=== PATIENT | female | born 1970 | race Caucasian/White ===

== ENCOUNTER → 2019-08-06 16:51 | Outpatient (BNVA) | payer MEDICAID, SELFPAY | PROVIDERS: Family Provider Nurse Practitioner; Visit Provider Nurse Practitioner | DX: I10 Essential (primary) hypertension (principal); F41.1 Generalized anxiety disorder; J30.1 Allergic rhinitis due to pollen; E66.9 Obesity, unspecified | CPT/HCPCS: 80053; 80061; 81000 ==

== ENCOUNTER → 2020-02-12 13:39 | Outpatient (BNVA) | payer MEDICAID, SELFPAY | PROVIDERS: PCP Nurse Practitioner; Visit Provider Nurse Practitioner Family | DX: E78.2 Mixed hyperlipidemia (principal); I10 Essential (primary) hypertension; E66.01 Morbid (severe) obesity due to excess calories; E88.81 Metabolic syndrome and other insulin resistance; Z68.44 Body mass index [BMI] 60.0-69.9, adult; F41.1 Generalized anxiety disorder; Z12.11 Encounter for screening for malignant neoplasm of colon; G47.10 Hypersomnia, unspecified; J45.909 Unspecified asthma, uncomplicated; Z12.31 Encounter for screening mammogram for malignant neoplasm of breast; Z23 Encounter for immunization; K21.9 Gastro-esophageal reflux disease without esophagitis | CPT/HCPCS: 80053; 80061; 83036; 84443; 85025 ==

== ENCOUNTER 2020-07-23 14:01 | Emergency (ER) | payer MEDICAID, SELFPAY ==
[2020-07-23 14:29] VITALS: BP 143/89; PULSE 94; RESP 22; TEMP 36.6; O2SAT 93; BMI 56.0
[2020-07-23 17:31] VITALS: BP 143/89; PULSE 93; RESP 18; O2SAT 95
--- NOTE | 2020-07-23 17:54 | ED_ITS ---
HPI - General Adult General: Chief complaint: General Medical Stated complaint: stuffy Time Seen by Provider: 07/23/20 17:45 Source: patient Mode of arrival: ambulatory Limitations: no limitations History of Present Illness: HPI narrative: Feels pressure in her ears has been congested for 2 weeks. Notices that when she lays at night and goes to stand up there is drainage. No coughing or any other symptoms when she is up and moving. Onset (ago): week(s) (2) Review of Systems General: Reports: 10 or more systems reviewed and unremarkable except in HPI and below ENMT: Reports: nasal congestion and sinus pain Resp: Reports: non-productive cough (Intermittent) PFSH ED PFSH: Medical History Asthma Essential (primary) hypertension Generalized anxiety disorder GERD (gastroesophageal reflux disease) Mixed hyperlipidemia Obesity BMI 65.5% Seasonal allergic rhinitis due to pollen Surgical History History of section Family History Other CAD (coronary artery disease) Diabetes Hypertension Social History Smoking and tobacco status: former smoker Second hand smoke exposure: No Smoking risk assessment/counseling performed?: No Alcohol intake: never Desire information about alcohol rehabilitation?: No Counseling given: No Desire information about substance/drug rehabilitation?: No Counseling given: No Adopted: No Caregiver/support person: No Lives independently: Yes Household members: none Marital status: Legally Number of children: 1 service: No Current occupational status: unemployed Pets and animals: Yes History of recent travel: No Sexually active: Yes Are you practicing safe sex: No Current gender identity: Female Physical Exam Const: COMMON NORMALS: no acute distress and patient oriented x3 NUTRITIONAL APPEARANCE: obese morbidly obese ORIENTATION/CONSCIOUSNESS: Yes awake HENMT: COMMON NORMALS: normocephalic, atraumatic and Normal external nose present HEAD & SCALP: normocephalic and atraumatic FACE & SINUS: normal facial exam and sinus tenderness frontal and maxillary NOSE: Normal external nose present and Nasal discharge present clear TYMPANIC MEMBRANE: TM abnormal TM laterality: right Details: bulging and erythematous and left Details: bulging and erythematous MOUTH: Normal oral and palatal mucosa present Eye: COMMON NORMALS: Equal, round and reactive pupils present and EOMs intact bilaterally PUPIL: Yes Equal, round and reactive pupils present Neck/C-Spine: COMMON NORMALS: full ROM and no lymphadenopathy Lymph: LYMPHATIC: no lymphadenopathy noted Chest: COMMONS NORMALS: normal inspection of the chest Resp: COMMON NORMALS: normal respiratory effort, No retractions and No use of accessory muscles AUSCULTATION: diminished lung sounds Cardio: COMMON NORMALS: regular rate, regular rhythm, S1 normal heart sound present and S2 normal heart sound present RATE: regular rate RHYTHM: regular rhythm HEART SOUNDS: S1 normal heart sound present and S2 normal heart sound present GI: COMMON NORMALS: Normal to inspection, nondistended, normoactive bowel sounds present : COMMON NORMALS: Yes no CVA tenderness BLADDER/KIDNEY EXAM: Yes no CVA tenderness Back/Pelvis: COMMON NORMALS: no CVA tenderness Extremity: COMMON NORMALS: normal to inspection and full ROM Neuro: COMMON NORMALS: patient oriented x3 Psych: COMMON NORMALS: mental status grossly normal, Normal thought process present, cooperative, normal affect and speech normal SPEECH: Yes normal speech THOUGHT PROCESS: Normal thought process present Skin: COMMON NORMALS: no rashes or lesions noted GENERAL SKIN EXAM: no rashes or lesions noted Course ED course: Plan to follow-up as scheduled with primary care provider in office. Complaints intermittent lasting a minimum of 2 weeks prior to visit. Vital Signs: Vital signs: Vital Signs Temperature 97.9 F 07/23/20 14:29 Pulse Rate 93 07/23/20 17:31 Respiratory Rate 18 07/23/20 17:31 Blood Pressure 143/89 07/23/20 17:31 Pulse Oximetry 95 07/23/20 17:31 Discharge Plan Discharge Condition: Stable Prescriptions: New amoxicillin-pot clavulanate [Augmentin] 875-125 mg tablet 1 tab PO BID 5 Days Qty: 10 RF: 0 loratadine [Claritin] 10 mg tablet 10 mg PO DAILY Qty: 30 RF: 0 No Action ibuprofen [IBU] 800 mg tablet 800 mg PO TID RF: 0 nitroglycerin 0.4 mg tablet, sublingual 0.4 mg SUBLINGUAL Q5M PRNRF: 0 metoprolol tartrate 25 mg tablet 25 mg PO BID Qty: 60 RF: 5 metformin 500 mg tablet extended release 24 hr 500 mg PO BID Qty: 60 RF: 5 fluticasone propionate [Flonase Allergy Relief] 50 mcg/actuation spray,suspension 2 spray INTRANASAL DAILY Qty: 16 RF: 5 fenofibrate nanocrystallized [Tricor] 145 mg tablet 145 mg PO DAILY Qty: 30 RF: 5 famotidine 40 mg tablet 40 mg PO DAILY 30 Days Qty: 30 RF: 5 citalopram [Celexa] 10 mg tablet 10 mg PO DAILY Qty: 30 RF: 5 amlodipine 5 mg tablet 5 mg PO DAILY Qty: 30 RF: 5 albuterol sulfate 90 mcg/actuation HFA aerosol inhaler 2 puff INHALATION Q6H PRN (Reason: shortness of breath or wheezing) Qty: 18 RF: 5 meloxicam 15 mg tablet 15 mg PO DAILY 30 Days Qty: 30 RF: 5 lisinopril 40 mg tablet 40 mg PO DAILY 30 Days Qty: 30 RF: 5 Discharge Orders: Discharge ED (Routine); Ordered 07/23/20 Ordered By: Tracee Mensah Referrals: Redd Jacinto FNP-C [Primary Care Provider] - 4-7 days (PRN no improvement) Discharge Diet: Usual diet Discharge Activity: Resume usual activity Patient Instructions: Sinusitis - Acute Coding Level of Care Code ED Policy Issue Clerk for Fernando Garcia
--- NOTE | 2020-07-23 18:04 | W.ED.GENADLT ---
HPI - General Adult General: Chief complaint: General Medical Stated complaint: stuffy Time Seen by Provider: 07/23/20 17:45 Source: patient Mode of arrival: ambulatory Limitations: no limitations Review of Systems General: Reports: 10 or more systems reviewed and unremarkable except in HPI and below ENMT: Reports: nasal congestion and sinus pain PFS ED PFSH: Medical History Asthma Essential (primary) hypertension Generalized anxiety disorder GERD (gastroesophageal reflux disease) Mixed hyperlipidemia Obesity BMI 65.5% Seasonal allergic rhinitis due to pollen Surgical History History of section Family History Other CAD (coronary artery disease) Diabetes Hypertension Social History Smoking and tobacco status: former smoker Second hand smoke exposure: No Smoking risk assessment/counseling performed?: No Alcohol intake: never Desire information about alcohol rehabilitation?: No Counseling given: No Desire information about substance/drug rehabilitation?: No Counseling given: No Adopted: No Caregiver/support person: No Lives independently: Yes Household members: none Marital status: Legally Number of children: 1 service: No Current occupational status: unemployed Pets and animals: Yes History of recent travel: No Sexually active: Yes Are you practicing safe sex: No Current gender identity: Female Course Vital Signs: Vital signs: Vital Signs Temperature 97.9 F 07/23/20 14:29 Pulse Rate 93 07/23/20 17:31 Respiratory Rate 18 07/23/20 17:31 Blood Pressure 143/89 07/23/20 17:31 Pulse Oximetry 95 07/23/20 17:31 Discharge Plan Discharge Condition: Stable Prescriptions: New amoxicillin-pot clavulanate [Augmentin] 875-125 mg tablet 1 tab PO BID 5 Days Qty: 10 RF: 0 loratadine [Claritin] 10 mg tablet 10 mg PO DAILY Qty: 30 RF: 0 No Action ibuprofen [IBU] 800 mg tablet 800 mg PO TID RF: 0 nitroglycerin 0.4 mg tablet, sublingual 0.4 mg SUBLINGUAL Q5M PRNRF: 0 metoprolol tartrate 25 mg tablet 25 mg PO BID Qty: 60 RF: 5 metformin 500 mg tablet extended release 24 hr 500 mg PO BID Qty: 60 RF: 5 fluticasone propionate [Flonase Allergy Relief] 50 mcg/actuation spray,suspension 2 spray INTRANASAL DAILY Qty: 16 RF: 5 fenofibrate nanocrystallized [Tricor] 145 mg tablet 145 mg PO DAILY Qty: 30 RF: 5 famotidine 40 mg tablet 40 mg PO DAILY 30 Days Qty: 30 RF: 5 citalopram [Celexa] 10 mg tablet 10 mg PO DAILY Qty: 30 RF: 5 amlodipine 5 mg tablet 5 mg PO DAILY Qty: 30 RF: 5 albuterol sulfate 90 mcg/actuation HFA aerosol inhaler 2 puff INHALATION Q6H PRN (Reason: shortness of breath or wheezing) Qty: 18 RF: 5 meloxicam 15 mg tablet 15 mg PO DAILY 30 Days Qty: 30 RF: 5 lisinopril 40 mg tablet 40 mg PO DAILY 30 Days Qty: 30 RF: 5 Discharge Orders: Discharge ED (Routine); Ordered 07/23/20 Ordered By: Tracee Mensah Referrals: Redd Jacinto, INSURANCE BROKER-C [Primary Care Provider] - 4-7 days (PRN no improvement) Discharge Diet: Usual diet Discharge Activity: Resume usual activity Patient Instructions: Sinusitis - Acute Coding Level of Care Code ED Profile 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
== END 2020-07-23 18:26 ==
PROVIDERS: Emergency Provider Nurse Practitioner Family; PCP Nurse Practitioner
DX: H93.93 Unspecified disorder of ear, bilateral (principal); I10 Essential (primary) hypertension; E78.2 Mixed hyperlipidemia; Z87.891 Personal history of nicotine dependence
CPT/HCPCS: 99281

== ENCOUNTER → 2020-09-24 16:40 | Outpatient (BNVA) | payer MEDICAID, SELFPAY | PROVIDERS: PCP Nurse Practitioner; Visit Provider Nurse Practitioner Family | DX: I10 Essential (primary) hypertension (principal) | CPT/HCPCS: 80053; 80061; 84443; 85025 ==

== ENCOUNTER 2020-11-17 14:38 | Emergency (ER) | payer MEDICAID, SELFPAY ==
[2020-11-17] VITALS (8 sets, daily range): BP systolic 147–170; BP diastolic 84–90; PULSE 87–100; RESP 20–21; TEMP 37.3; O2SAT 80–96; BMI 54.8
--- NOTE | 2020-11-17 15:02 | ECG_ITS ---
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 Measurements Intervals [place] Rate: 85 P: 62 GA: 136 QRS: 24 QRSD: 90 T: 62 QT: 383 QTc: 456 Interpretive Statements SINUS RHYTHM Compared to ECG 12/21/2018 08:01:38 No significant changes Electronically Signed On 11-19-2020 9:03:10 CDT by Leila Morfin M.D. [email or web address] Local/store/NU/[id number] f
--- NOTE | 2020-11-17 15:02 | XRR_ITS ---
PROCEDURE INFORMATION: Exam: XR Chest Exam date and time: 11/17/2020 3:02 PM Age: 50 years old Clinical indication: Pain; Angina pectoris; Additional info: Chest pain TECHNIQUE: Imaging protocol: XR of the chest. Views: 1 view. COMPARISON: CR Chest 1 [place] [id number] 12/21/2018 5:29 AM FINDINGS: Lungs: A calcified granuloma is again seen in the right upper lobe. The lungs are otherwise clear. Pleural spaces: Unremarkable. No pleural effusion. No pneumothorax. Heart: The heart is mildly enlarged. Bones/joints: Mild degenerative changes are seen in both shoulders. No acute fracture is detected. XR/XR chest 1V portable [id number] IMPRESSION: 1. No acute pulmonary abnormality. 2. Mild cardiomegaly.
--- NOTE | 2020-11-17 15:03 | ED_ITS ---
HPI - Chest Pain General: Chief Complaint: Chest Pain Stated Complaint: CHEST PAIN Time Seen by Provider: 11/17/20 14:45 History of Present Illness: HPI narrative: 50-year-old female with a history of hypertension, anxiety, gastritis with GERD, morbid obesity who presents with chief complaint of about 15 minutes of central substernal and epigastric discomfort in the low chest. Patient reports she felt nauseated but not enough to vomit. She reports no associated back pain, arm pain, neck pain, shortness of breath, dizziness, palpitations. Patient is not able to describe the discomfort. She states she had been worried about her granddaughter and had e aten some cottage cheese. It is unclear to her whether the anxiety about her granddaughter or the cottage cheese caused her symptoms. She rates her pain as a 0 now. The patient did take 1 nitroglycerin with EMS but refused aspirin because she is allergic. Associated symptoms: Reports nausea; Deny abdominal pain, dyspnea, fever(s), palpitations, syncope or vomiting Review of Systems General: Reports: 10 or more systems reviewed and unremarkable except in HPI and below Const: Denies: fever(s), chills, body aches, change in appetite or change in weight Eyes: Denies: change in vision ENMT: Denies: throat pain Card: Reports: chest pain, dyspnea on exertion (unchanged) and orthopnea (unchanged); Denies: palpitations, irregular heart rhythm, edema, swelling of feet/ankles, lightheadedness or syncope Resp: Reports: wheezing; Denies: dyspnea, productive cough, pain on inspiration or hemoptysis GI: Reports: nausea; Denies: abdominal pain, vomiting, diarrhea, belching, change in bowel habits, pain on defecation, change in stool character or hematochezia : Denies: flank pain, dysuria or urinary frequency Musc: Denies: neck pain, back pain, extremity pain or extremity swelling Skin/Breast: Denies: rash or erythema Neuro: Denies: headache(s), numbness in extremities, weakness in extremities, lack of coordination or difficulty walking Psych: Reports: anxiety [facility] ED PFSH: Medical History (Updated 11/17/20 @ 17:34 by Honorio Blue MD) Asthma Essential (primary) hypertension Generalized anxiety disorder GERD (gastroesophageal reflux disease) Mixed hyperlipidemia Obesity BMI 65.5% Seasonal allergic rhinitis due to pollen Surgical History History of section Family History Other CAD (coronary artery disease) Diabetes Hypertension Social History Second hand smoke exposure: No Smoking risk assessment/counseling performed?: No Alcohol intake: never Desire information about alcohol rehabilitation?: No Counseling given: No Desire information about substance/drug rehabilitation?: No Counseling given: No Adopted: No Caregiver/support person: No Lives independently: Yes Household members: none Marital status: Legally Number of children: 1 service: No Current occupational status: unemployed Pets and animals: Yes History of recent travel: No Sexually active: Yes Are you practicing safe sex: No Current gender identity: Female Physical Exam Const: COMMON NORMALS: no acute distress, no limitations, alert and well nourished; negative for average body habitus EXAM LIMITATIONS: no altered mental status GENERAL APPEARANCE: cooperative, comfortable and well developed; not well kempt NUTRITIONAL APPEARANCE: obese ORIENTATION/CONSCIOUSNESS: Yes awake; not confused HENMT: COMMON NORMALS: normocephalic, atraumatic, external ears normal and Normal external nose present HEAD & SCALP: normal to inspection, normocephalic and atraumatic FACE & SINUS: face symmetric NOSE: Normal external nose present EXTERNAL EAR: Yes external ears normal MOUTH: lip normal; no muffled voice Eye: COMMON NORMALS: EOMs intact bilaterally and conjunctivae normal GENERAL EYE: appearance normal, both eyes and all related structures CO NJUNCTIVA: Yes conjunctivae normal Neck/C-Spine: COMMON NORMALS: no JVD GENERAL: Yes normal visual inspection and Yes trachea midline Resp: EFFORT & INSPECTION: Yes able to speak in complete sentences, Yes symmetric chest movement, Yes tachypneic, Yes labored and Yes grunting (with exertion) AUSCULTATION: no crackles, no rales, wheezes and diminished lung sounds OTHER: Obesity makes chest wall movement/taking deep breaths difficult Cardio: COMMON NORMALS: no JVD, regular rate and regular rhythm RATE: regular rate RHYTHM: regular rhythm PERIPHERAL PULSES: radial pulses present GI: COMMON NORMALS: Soft to palpation INSPECTION: Yes normal to inspection PALPATION: Yes Soft to palpation, No Tenderness to palpation present (GI) and No Guarding due to palpation present (GI) Back/Pelvis: COMMON NORMALS: thoraco-lumbar ROM normal Extremity: COMMON NORMALS: normal to inspection GENERAL: Yes normal exam except as noted Neuro: COMMON NORMALS: moves all extremities, no focal motor deficits and no sensory deficits noted SENSORIUM/ORIENTATION: Yes alert Psych: COMMON NORMALS: mental status grossly normal, Normal thought process present, cooperative, normal affect and speech normal APPEARANCE: No well kempt SPEECH: Yes normal speech THOUGHT PROCESS: Normal thought process present Skin: COMMON NORMALS: no rashes or lesions noted, turgor normal and no jaundice GENERAL SKIN EXAM: no rashes or lesions noted and turgor normal Course Vital Signs: Vital signs: Vital Signs Temperature 99.1 F 11/17/20 14:49 Pulse Rate 100 11/17/20 18:04 Respiratory Rate 21 H 11/17/20 18:04 Blood Pressure 160/90 11/17/20 18:04 Pulse Oximetry 96 11/17/20 18:04 MDM - Chest Pain MDM Narrative: Medical decision making narrative: 50-year-old female presents with approximately 15 minutes of chest discomfort. Differential diagnosis is large and includes anxiety, arrhythmia, acute coronary syndrome, hepatobiliary dysfunction, gastritis, GERD, hiatal hernia, esophageal dysmotility, partial esophageal obstruction, obstructive lung disease, etc. EKG shows a sinus rhythm at a rate of 85 bpm, normal axis, normal intervals, and no concerning ST segment elevations or depressions. There is no ectopy. No signs of preexcitation. CXR shows cardiomegaly. Patient hypoxic with exertion or with falling asleep. Likely obesity hypoventilation syndrome with ARACELI. Bicarb elevated which is often indication of chronic respiratory acidosis. However, will r/o PE, pneumonia, effusions, etc. CTA chest has ruled out PE. No evidence of pneumonia. Some small airway mucus plugging noted. Patient has qualified for home oxygen. Will refer to pulmonology for sleep study. Trop/delta trop stable. d/c with outpatient f/u Lab Data: Labs: Lab Results 11/17/20 11/17/20 11/17/20 Range/Units 15:16 15:16 15:16 WBC 11.1 H (4.0-10.0) 10^3/ uL RBC 4.69 (4.1-5.3) 10^6/u L Hgb 12.1 (11.5-15.3) g/dL Hct 38.9 (37.0-47.0) % MCV 82.9 (81-99) fl MCH 25.8 L (28.0-34.0) pg MCHC 31.1 (30.0-36.0) g/dL RDW 13.6 (12.1-15.1) % Plt Count 324 (130-400) 10^3/c mm MPV 10.2 (7.4-10.4) fL Neut % (Auto) 68.6 % Lymph % (Auto) 13.5 % [place] % (Auto) 6.7 % Eos % (Auto) 10.4 % Baso % (Auto) 0.4 % Neut # (Auto) 7.64 (1.8-7.7) 10^3/u L Lymph # (Auto) 1.5 (0.8-4.8) 10^3/u L [place] # (Auto) 0.8 (0.2-0.9) 10^3/u L Eos # (Auto) 1.2 H (0.0-0.8) 10^3/u L Baso # (Auto) 0.1 (0.0-0.1) 10^3/u L Nucleated RBC % (a uto) 0 % Nucleated RBCs # 0.0 /100WBC Sodium 141 (136-145) mmol/L Potassium 3.9 (3.5-5.1) mmol/L Chloride 103 (98-107) mmol/L Carbon Dioxide 30 H (22-29) mmol/L Anion Gap 11.9 (5-19) BUN 16 (6-20) mg/dL Creatinine 0.6 (0.5-0.9) mg/dL GFR Calculation 105.8 (90-130) mL/min Glucose 131 H (65-115) mg/dL Calculated Osmolal ity 295 (285-295) mOsm/k g Calcium 8.8 (8.5-10.5) mg/dL Total Bilirubin 0.2 (0.15-1.2) mg/dL AST 11 (0-32) U/L ALT 13 (0-33) U/L Alkaline Phosphata se 51 (35-105) IU/L Troponin T Baselin e 6 (0-10) ng/L Troponin T 120 Min [place] (0-10) ng/L Delta Troponin T (0-10) ABS# NT-Pro-B Natriuret Pep 295 H (0-125) pg/mL Total Protein 7.1 (6.6-8.7) g/dL Albumin 4.2 (3.5-5.2) g/dL Globulin 2.9 (1.3-4.6) g/dL Lipase 27 (13-60) U/L SARS-CoV-2 Ag (Rap id) (Negative) 11/17/20 11/17/20 Range/Units 15:40 17:11 WBC (4.0-10.0) 10^3/ uL RBC (4.1-5.3) 10^6/u L Hgb (11.5-15.3) g/dL Hct (37.0-47.0) % MCV (81-99) fl MCH (28.0-34.0) pg MCHC (30.0-36.0) g/dL RDW (12.1-15.1) % Plt Count (130-400) 10^3/c mm MPV (7.4-10.4) fL Neut % (Auto) % Lymph % (Auto) % [place] % (Auto) % Eos % (Auto) % Baso % (Auto) % Neut # (Auto) (1.8-7.7) 10^3/u L Lymph # (Auto) (0.8-4.8) 10^3/u L [place] # (Auto) (0.2-0.9) 10^3/u L Eos # (Auto) (0.0-0.8) 10^3/u L Baso # (Auto) (0.0-0.1) 10^3/u L Nucleated RBC % (a uto) % Nucleated RBCs # /100WBC Sodium (136-145) mmol/L Potassium (3.5-5.1) mmol/L Chloride (98-107) mmol/L Carbon Dioxide (22-29) mmol/L Anion Gap (5-19) BUN (6-20) mg/dL Creatinine (0.5-0.9) mg/dL GFR Calculation (90-130) mL/min Glucose (65-115) mg/dL Calculated Osmolal ity (285-295) mOsm/k g Calcium (8.5-10.5) mg/dL Total Bilirubin (0.15-1.2) mg/dL AST (0-32) U/L ALT (0-33) U/L Alkaline Phosphata se (35-105) IU/L Troponin T Baselin e (0-10) ng/L Troponin T 120 Min [place] 6.00 (0-10) ng/L Delta Troponin T 0 (0-10) ABS# NT-Pro-B Natriuret Pep (0-125) pg/mL Total Protein (6.6-8.7) g/dL Albumin (3.5-5.2) g/dL Globulin (1.3-4.6) g/dL Lipase (13-60) U/L SARS-CoV-2 Ag (Rap id) Negative (Negative) Discharge Plan Discharge Patient Disposition: Home Clinical Impression: Atypical chest pain, Obesity hypoventilation syndrome, Obstructive sleep apnea, Cardiomegaly Condition: Stable Prescriptions: No Action ibuprofen [IBU] 800 mg tablet 800 mg PO TID RF: 0 nitroglycerin 0.4 mg tablet, sublingual 0.4 mg SUBLINGUAL Q5M PRN (Reason: Chest Pain) RF: 0 cyclobenzaprine 10 mg tablet 10 mg PO BID 10 Days Qty: 20 RF: 0 metoprolol tartrate 25 mg tablet 25 mg PO BID Qty: 60 RF: 5 metformin 500 mg tablet extended release 24 hr 500 mg PO BID Qty: 60 RF: 5 meloxicam 15 mg tablet 15 mg PO DAILY 30 Days Qty: 30 RF: 5 lisinopril 40 mg tablet 40 mg PO DAILY 30 Days Qty: 30 RF: 5 fluticasone propionate [Flonase Allergy Relief] 50 mcg/actuation spray,suspension 2 spray INTRANASAL DAILY Qty: 16 RF: 5 fenofibrate nanocrystallized [Tricor] 145 mg tablet 145 mg PO DAILY Qty: 30 RF: 5 famotidine 40 mg tablet 40 mg PO DAILY 30 Days Qty: 30 RF: 5 citalopram [Celexa] 10 mg tablet 10 mg PO DAILY Qty: 30 RF: 5 amlodipine 5 mg tablet 5 mg PO DAILY Qty: 30 RF: 5 albuterol sulfate 90 mcg/actuation HFA aerosol inhaler 2 puff INHALATION Q6H PRN (Reason: shortness of breath or wheezing) Qty: 18 RF: 5 Discharge Orders: Discharge ED (Routine); Ordered 11/17/20 Ordered By: Honorio Blue Other Ambulatory Orders: DME: Oxygen (Order) Timeframe: 60 Months Location: None Selected Ordered By: Honorio Blue Referrals: DatarEzequiel MD [Physician] - 4-7 days (Had to be started on oxygen in ED. Dropped into 70s while sitting up on 3L NC when she fell asleep.) Redd Jacinto, ICHTHYOLOGY TEACHER-C [Primary Care Provider] - (Had to be started on oxygen. Has clinical s/s of ARACELI and pulm htn from obesity hypoventilation syndrome.) Discharge Diet: Advance as tolerated Discharge Activity: Resume usual activity Patient Instructions: Sleep Apnea Syndrome (GEN), Using Oxygen at Home (ED), Hypoxia (ED), Opioid Safety Coding Level of Care Code ED Shoveler for Chg Fwd Exam Comprehensive
[2020-11-17] MEDS: lidocaine 2% viscous 15 ML, aluminum-mag hydrox-simethicon 30 ML, sucralfate oral liq 1 GM PO (15:24)
[2020-11-17] MEDS: ondansetron 2 mg/ML SDV 2 mL 4 MG IVP (15:24)
--- NOTE | 2020-11-17 15:34 | CTR_ITS ---
PROCEDURE INFORMATION: Exam: CTA Chest With Contrast Exam date and time: 11/17/2020 3:34 PM Age: 50 years old Clinical indication: Other: Hypoxia; Patient HX: Scan x 2 poor bolus; Additional info: Hypoxia, cp TECHNIQUE: Imaging protocol: Computed tomographic angiography of the chest with contrast. 3D rendering (Not supervised by radiologist): MIP and/or 3D reconstructed images were created by the technologist. Radiation optimization: All CT scans at this facility use at least one of these dose optimization techniques: automated exposure control; mA and/or kV adjustment per patient size (includes targeted exams where dose is matched to clinical indication); or iterative reconstruction. Contrast material: OMNI 350; Contrast volume: 190 ml; Contrast route: INTRAVENOUS (IV); COMPARISON: CR XR chest 1V portable [id number] 11/17/2020 3:46 PM RADIATION DOSE METRICS: Total DLP (mGy-cm): 2523.76 FINDINGS: Pulmonary arteries: No pulmonary embolus is seen. Aorta: Unremarkable. No aortic aneurysm. No aortic dissection. Lungs: Small calcified granulomas are present in the right upper lobe and lingula. Mild mosaic lung attenuation is observed in both lungs. No acute airspace process is visualized. Patchy areas of bronchial mucous plugging are detected in the lower lobes. Subsegmental atelectasis is also seen in the right middle lobe and lingula. Pleural spaces: Unremarkable. No pneumothorax. No pleural effusion. Heart: The heart is normal in size. Lymph nodes: A calcified lymph node is seen in the left hilum. No lymphadenopathy. Liver: The liver is mildly enlarged and demonstrates mild fatty infiltration changes. No parenchymal lesion is visualized on the images provided. Bones/joints: Unremarkable. No acute fracture. Soft tissues: Unremarkable. CT/CT angio chest PE protcl [id number] IMPRESSION: 1. No pulmonary embolus. 2. Mild mosaic lung attenuation may be related to small airways disease. Patchy areas of bronchial mucous plugging are observed in the lung bases. 3. Hepatomegaly and mild hepatic steatosis. Radiation Dose CTDIVOL = (mGy): DLP = 2523.76 (mGy-cm)
[2020-11-17 15:40] LABS: Basophils # 0.1 10^3/uL (0.0-0.1); Basophils % 0.4 %; Eosinophils # 1.2 10^3/uL (0.0-0.8); Eosinophils % 10.4 %; Hematocrit 38.9 % (37.0-47.0); Hemoglobin 12.1 g/dL (11.5-15.3); Lymphocytes # 1.5 10^3/uL (0.8-4.8); Lymphocytes % 13.5 %; Mean Corpuscular HGB Conc 31.1 g/dL (30.0-36.0); Mean Corpuscular Hemoglobin 25.8 pg (28.0-34.0); Mean Corpuscular Volume 82.9 fl (81-99); Mean Platelet Volume 10.2 fL (7.4-10.4); Monocytes # 0.8 10^3/uL (0.2-0.9); Monocytes % 6.7 %; Neutrophils # 7.64 10^3/uL (1.8-7.7); Neutrophils % 68.6 %; Nucleated Red Blood Cells % 0 %; Platelet Count 324 10^3/cmm (130-400); Red Blood Count 4.69 10^6/uL (4.1-5.3); Red Cell Distribution Width 13.6 % (12.1-15.1); White Blood Count 11.1 10^3/uL (4.0-10.0)
[2020-11-17] MEDS: albuterol 8 gm MDI 2 PUFF INHALATION (15:55)
[2020-11-17 16:13] LABS: SARS Covid-2 Antigen Negative (Negative)
[2020-11-17 16:18] LABS: Troponin(5th) Baseline 6 ng/L (0-10)
[2020-11-17 16:27] LABS: Alanine Aminotransferase 13 U/L (0-33); Albumin Level 4.2 g/dL (3.5-5.2); Alkaline Phosphatase 51 IU/L (35-105); Anion Gap 11.9 (5-19); Aspartate Amino Transferase 11 U/L (0-32); Blood Urea Nitrogen 16 mg/dL (6-20); Calcium 8.8 mg/dL (8.5-10.5); Carbon Dioxide 30 mmol/L (22-29); Chloride 103 mmol/L (98-107); Creatinine Clr Calc Pharmacy 149.6198; Globulin 2.9 g/dL (1.3-4.6); Glomerular Filtration Rate 105.8 mL/min (90-130); Glucose 131 mg/dL (65-115); Lipase 27 U/L (13-60); NT Pro B Type Natriuretic Pept 295 pg/mL (0-125); Osmolality Calculated 295 mOsm/kg (285-295); Potassium 3.9 mmol/L (3.5-5.1); Sodium 141 mmol/L (136-145); Total Bilirubin 0.2 mg/dL (0.15-1.2); Total Protein 7.1 g/dL (6.6-8.7)
[2020-11-17] MEDS: iohexol 350 mg/mL 100 mL Btl IV ×2 (16:36)
--- NOTE | 2020-11-17 17:02 | ECG_ITS ---
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 Measurements Intervals [place] Rate: 95 P: 57 PA: 149 QRS: 11 QRSD: 94 T: 56 QT: 352 QTc: 444 Interpretive Statements SINUS RHYTHM Compared to ECG 11/17/2020 14:53:21 No significant changes Electronically Signed On 11-19-2020 10:41:18 CDT by Leila Morfin M.D. [email or web address].[employer]/store/NU/[id number] [email or web address]
[2020-11-17 17:50] LABS: Troponin 5 2HR Delta 0 ABS# (0-10)
--- NOTE | 2020-11-18 14:06 | DCPLANNER ---
Addendum entered by Sabrina Mathis 04/01/21 16:29: Patient had a follow up appointment scheduled with pulmonology - patient did not attend appointment. Original Note: manager cost had message to schedule a follow up appointment for patient with pulmonology. manager cost called [facility], spoke with Keisha, gave clinic patients information. A follow up appointment was scheduled for Monday, December 08, 2020 at 12:[address] Centeno. manager cost called patient and gave patient the appointment information.
--- NOTE | 2020-12-17 15:44 | DCPLANNER ---
global commodity manager was asked to pre certify patients oxygen with medicaid. global commodity manager went onto [employer] and worked up the pre certification for oxygen.
== END 2020-11-17 18:55 | disposition home or self-care (01) ==
PROVIDERS: Emergency Provider Emergency Medicine; PCP Nurse Practitioner
DX: R07.89 Other chest pain (principal); R06.89 Other abnormalities of breathing; G47.33 Obstructive sleep apnea (adult) (pediatric); I51.7 Cardiomegaly; E66.9 Obesity, unspecified; Z79.84 Long term (current) use of oral hypoglycemic drugs; I10 Essential (primary) hypertension; E78.2 Mixed hyperlipidemia; Z20.822 Contact with and (suspected) exposure to COVID-19
CPT/HCPCS: 71045; 71275; 80053; 83690; 83880; 84484; 85025; 87426; 93005; 94640; 96374; 99284; J2405; J3535; Q9967

== ENCOUNTER 2021-03-20 15:21 | Emergency (ER) | payer MEDICAID, SELFPAY ==
[2021-03-20 15:24] VITALS: BP 144/98; PULSE 73; RESP 16; O2SAT 97; BMI 48.1
--- NOTE | 2021-03-20 15:25 | XRR_ITS ---
PROCEDURE INFORMATION: Exam: XR Chest Exam date and time: 03/20/2021 3:25 PM Age: 51 years old Clinical indication: Shortness of breath; Additional info: SOB TECHNIQUE: Imaging protocol: XR of the chest. Views: 1 view. COMPARISON: CR XR chest 1V portable [id number] 11/17/2020 3:46 PM FINDINGS: Lungs: No consolidation. Pleural spaces: No pleural effusion. No pneumothorax. Heart/Mediastinum: Stable cardiomegaly. Bones/joints: Visualized osseous structures are intact. XR/XR chest 1V portable [id number] IMPRESSION: Stable exam, no acute findings.
--- NOTE | 2021-03-20 15:26 | ECG_ITS ---
[facility] Test Date: 2021-03-20 Pat Name: Gemma Moya Department: Room: Gender: Female Energy Director: : 1970 Requested By: Cecy Spann Order Number: [id number] Nicholas MD: Leila Morfin M.D. 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 [id number]
--- NOTE | 2021-03-20 15:27 | ED_ITS ---
HPI - SOB/Dyspnea General: Chief Complaint: Shortness of Breath/Dyspnea Stated Complaint: SOB Time Seen by Provider: 03/20/21 15:22 Source: patient and EMS Mode of arrival: EMS Limitations: no limitations History of Present Illness: HPI Narrative: 51-year-old female has a long history of COPD and morbid obesity she states that she was diagnosed with pneumonia 2 weeks ago's been on antibiotics she is recently finished states that today started having cough wheezing and increased shortness of breath patient here on 3 L is 97% she wears 3 L all the time at home. Patient was given breathing treatment in route states she is feeling improved. She denies any chest pain denies any fever she is able to speak in full sentences. Associated symptoms: Deny abdominal pain, chest pain, fever(s), nausea or vomiting Review of Systems Const: Denies: fever(s), chills, body aches or change in appetite Eyes: Denies: blurry vision or eye discomfort ENMT: Denies: throat pain or dental pain Card: Denies: chest pain Resp: Reports: dyspnea, non-productive cough and wheezing GI: Denies: abdominal pain, nausea, vomiting or diarrhea : Denies: dysuria Musc: Denies: neck pain or back pain Skin/Breast: Denies: rash Neuro: Denies: headache(s) Psych: Denies: depression Michael/Lymph: Denies: easy bruising All/Imm: Denies: urticaria PFSH ED PFSH: Medical History (Updated 03/20/21 @ 17:04 by Cecy Spann MD) Asthma Essential (primary) hypertension Generalized anxiety disorder GERD (gastroesophageal reflux disease) Mixed hyperlipidemia Obesity BMI 65.5% Seasonal allergic rhinitis due to pollen Surgical History History of section Family History Other CAD (coronary artery disease) Diabetes Hypertension Social History Second hand smoke exposure: No Smoking risk assessment/counseling performed?: No Alcohol intake: never Desire information about alcohol rehabilitation?: No Counseling given: No Desire information about substance/drug rehabilitation?: No Counseling given: No Adopted: No Caregiver/support person: No Lives independently: Yes Household members: none Marital status: Legally Number of children: 1 service: No Current occupational status: unemployed Pets and animals: Yes History of recent travel: No Sexually active: Yes Are you practicing safe sex: No Current gender identity: Female Physical Exam Const: COMMON NORMALS: no acute distress, patient oriented x3 and healthy appearing HENMT: COMMON NORMALS: normocephalic and atraumatic HEAD & SCALP: normocephalic and atraumatic Eye: COMMON NORMALS: Equal, round and reactive pupils present and EOMs intact bilaterally PUPIL: Yes Equal, round and reactive pupils present Neck/C-Spine: COMMON NORMALS: full ROM and supple Chest: COMMONS NORMALS: normal inspection of the chest and normal palpation of entire chest wall Resp: COMMON NORMALS: No retractions and No use of accessory muscles EFFORT & INSPECTION: Yes tachypneic AUSCULTATION: wheezes Cardio: COMMON NORMALS: regular rate, regular rhythm and No murmurs present (Cardio) RATE: regular rate RHYTHM: regular rhythm GI: COMMON NORMALS: Normal to inspection, nondistended, normoactive bowel sounds present, Soft to palpation, non-tender and no masses PALPATION: Yes Soft to palpation Extremity: COMMON NORMALS: normal to inspection and full ROM Neuro: COMMON NORMALS: patient oriented x3, moves all extremities and no focal motor deficits Psych: COMMON NORMALS: mental status grossly normal, Normal thought process present and cooperative THOUGHT PROCESS: Normal thought process present Skin: COMMON NORMALS: no rashes or lesions noted and no wounds GENERAL SKIN EXAM: no rashes or lesions noted Course Vital Signs: Vital signs: Vital Signs Pulse Rate 78 03/20/21 18:18 Respiratory Rate 16 03/20/21 18:18 Blood Pressure 170/94 03/20/21 18:18 Pulse Oximetry 94 03/20/21 18:18 MDM - SOB/Dyspnea MDM Narrative: Medical decision making narrative: Patient presents for COPD exacerbation no signs of pneumonia or cardiac cause feels much improved after breathing treatment sat 98% on her 3 L of oxygen that she wears at home we will place her on doxycycline for 5 days of steroid have her follow-up with PCP and return if worsening. Lab Data: Labs: Lab Results 03/20/21 03/20/21 03/20/21 15:44 16:04 16:04 WBC 10.3 10^3/uL H 10 ^3/uL (4.0-10.0) RBC 5.03 10^6/uL 10^6 /uL (4.1-5.3) Hgb 12.7 g/dL g/dL (11.5-15.3) Hct 43.0 % % (37.0-47.0) MCV 85.5 fl fl (81-99) MCH 25.2 pg L pg (28.0-34.0) MCHC 29.5 g/dL L g/dL (30.0-36.0) RDW 13.2 % % (12.1-15.1) Plt Count 298 10^3/cmm 10^3 /cmm (130-400) MPV 11.7 fL H fL (7.4-10.4) Neut % (Auto) 75.5 % % Lymph % (Auto) 15.1 % % Edwards % (Auto) 5.5 % % Eos % (Auto) 1.8 % % Baso % (Auto) 0.4 % % Neut # (Auto) 7.77 10^3/uL H 10 ^3/uL (1.8-7.7) Lymph # (Auto) 1.6 10^3/uL 10^3/ uL (0.8-4.8) Edwards # (Auto) 0.6 10^3/uL 10^3/ uL (0.2-0.9) Eos # (Auto) 0.2 10^3/uL 10^3/ uL (0.0-0.8) Baso # (Auto) 0.0 10^3/uL 10^3/ uL (0.0-0.1) Nucleated RBC % (a uto) 0 % % Nucleated RBCs # 0.0 /100WBC /100W BC Specimen Type Arterial Sample Site Radial, left ABG pH 7.35 (7.35-7.45) ABG pCO2 69.8 mmHg H* mmHg (35-45) ABG pO2 101.0 mmHg H mmHg (80.0-100.0) ABG HCO3 38.8 mmol/L H mmo l/L (22-26) ABG Base Excess 10.6 mmol/L H mmo l/L (-2.0-2.0) [place] Test Pos Hematocrit 37.8 % % (37-47) O2 Delivery Device Nc O2 Liters/Min 3.0 % % FiO2 32.0 % % [employer]iture ID Amh Sodium 130 mmol/L L mmol /L (136-145) Potassium 3.4 mmol/L L mmol /L (3.5-5.1) Chloride 88 mmol/L L mmol/ L (98-107) Carbon Dioxide 32 mmol/L H mmol/ L (22-29) Anion Gap 13.4 (5-19) BUN 17 mg/dL mg/dL (6-20) Creatinine 0.4 mg/dL L mg/dL (0.5-0.9) GFR Calculation 168.3 mL/min H mL /min (90-130) Glucose 114 mg/dL mg/dL (65-115) Calculated Osmolal ity 272 mOsm/kg L mOs m/kg (285-295) Calcium 9.6 mg/dL mg/dL (8.5-10.5) Total Bilirubin 0.4 mg/dL mg/dL (0.15-1.2) AST 18 U/L U/L (0-32) ALT 39 U/L H U/L (0-33) Alkaline Phosphata se 50 IU/L IU/L (35-105) C-Reactive Protein 4.7 mg/L mg/L (0.0-4.9) NT-Pro-B Natriuret Pep 2298 pg/mL H pg/m L (0-125) Total Protein 7.7 g/dL g/dL (6.6-8.7) Albumin 4.1 g/dL g/dL (3.5-5.2) Globulin 3.6 g/dL g/dL (1.3-4.6) SARS-CoV-2 Ag (Rap id) 03/20/21 16:04 WBC RBC Hgb Hct MCV MCH MCHC RDW Plt Count MPV Neut % (Auto) Lymph % (Auto) Edwards % (Auto) Eos % (Auto) Baso % (Auto) Neut # (Auto) Lymph # (Auto) Edwards # (Auto) Eos # (Auto) Baso # (Auto) Nucleated RBC % (a uto) Nucleated RBCs # Specimen Type Sample Site ABG pH ABG pCO2 ABG pO2 ABG HCO3 ABG Base Excess [place] Test Hematocrit O2 Delivery Device O2 Liters/Min FiO2 [employer] ID Sodium Potassium Chloride Carbon Dioxide Anion Gap BUN Creatinine GFR Calculation Glucose Calculated Osmolal ity Calcium Total Bilirubin AST ALT Alkaline Phosphata se C-Reactive Protein NT-Pro-B Natriuret Pep Total Protein Albumin Globulin SARS-CoV-2 Ag (Rap id) Negative (Negative) Imaging Data^: CXR: Attestation: I personally reviewed and interpreted this imaging study as follows: My impression: no acute abnormaliy EKG Data^: EKG 1: Attestation: I personally reviewed and interpreted this EKG as follows: EKG Interpretation Date: 03/20/21 EKG interpretation time: 15:43 Interpretation: nsr hr [address] or t wave abnormalities qrs 92 [id number] Discharge Plan Discharge Patient Disposition: Home Clinical Impression: Acute exacerbation of chronic obstructive airways disease Condition: Stable Prescriptions: New prednisone 50 mg tablet 50 mg PO DAILY Qty: 5 RF: 0 doxycycline hyclate 100 mg tablet 100 mg PO BID 7 Days Qty: 14 RF: 0 No Action ibuprofen [IBU] 800 mg tablet 800 mg PO TID RF: 0 nitroglycerin 0.4 mg tablet, sublingual 0.4 mg SUBLINGUAL Q5M PRN (Reason: Chest Pain) RF: 0 cyclobenzaprine 10 mg tablet 10 mg PO BID 10 Days Qty: 20 RF: 0 metoprolol tartrate 25 mg tablet 25 mg PO BID Qty: 60 RF: 5 metformin 500 mg tablet extended release 24 hr 500 mg PO BID Qty: 60 RF: 5 meloxicam 15 mg tablet 15 mg PO DAILY 30 Days Qty: 30 RF: 5 lisinopril 40 mg tablet 40 mg PO DAILY 30 Days Qty: 30 RF: 5 fluticasone propionate [Flonase Allergy Relief] 50 mcg/actuation spray,suspension 2 spray INTRANASAL DAILY Qty: 16 RF: 5 fenofibrate nanocrystallized [Tricor] 145 mg tablet 145 mg PO DAILY Qty: 30 RF: 5 famotidine 40 mg tablet 40 mg PO DAILY 30 Days Qty: 30 RF: 5 citalopram [Celexa] 10 mg tablet 10 mg PO DAILY Qty: 30 RF: 5 amlodipine 5 mg tablet 5 mg PO DAILY Qty: 30 RF: 5 albuterol sulfate 90 mcg/actuation HFA aerosol inhaler 2 puff INHALATION Q6H PRN (Reason: shortness of breath or wheezing) Qty: 18 RF: 5 Discharge Orders: Discharge ED (Routine); Ordered 03/20/21 Ordered By: Cecy Spann Referrals: Redd Jacinto, W[facility]TER-[facility] [Primary Care Provider] - Discharge Diet: Advance as tolerated Discharge Activity: Resume usual activity Patient Instructions: COPD (Chronic Obstructive Pulmonary Disease) (ED) Coding Level of Care Code ED Medical Appointment Clerk for [facility] Fwd Exam Comprehensive
[2021-03-20] MEDS: ipratropium-albuterol 3 mL Neb INHALATION (15:41)
[2021-03-20 15:43] VITALS: PULSE 73; RESP 22; O2SAT 98
[2021-03-20 15:55] LABS: ABG PH Result 7.35 (7.35-7.45); Arterial Blood Gas Hematocrit 37.8 % (37-47); Base Excess ABG 10.6 mmol/L (-2.0-2.0); Blood Gas Allen Test Pos; Blood Gas Operator Identificat AMH; Blood Gas Sample Site Radial, left; Blood Gas Sample Type Arterial; HCO3 ABG 38.8 mmol/L (22-26); Oxygen Device NC
[2021-03-20 15:56] LABS: ABG PCO2 69.8 mmHg (35-45)
[2021-03-20 16:00] VITALS: PULSE 73; RESP 22; O2SAT 98
[2021-03-20 16:18] LABS: Basophils % 0.4 %; Eosinophils # 0.2 10^3/uL (0.0-0.8); Eosinophils % 1.8 %; Hemoglobin 12.7 g/dL (11.5-15.3); Lymphocytes # 1.6 10^3/uL (0.8-4.8); Lymphocytes % 15.1 %; Mean Corpuscular HGB Conc 29.5 g/dL (30.0-36.0); Mean Corpuscular Hemoglobin 25.2 pg (28.0-34.0); Mean Corpuscular Volume 85.5 fl (81-99); Mean Platelet Volume 11.7 fL (7.4-10.4); Monocytes # 0.6 10^3/uL (0.2-0.9); Monocytes % 5.5 %; Neutrophils # 7.77 10^3/uL (1.8-7.7); Neutrophils % 75.5 %; Nucleated Red Blood Cells % 0 %; Platelet Count 298 10^3/cmm (130-400); Red Blood Count 5.03 10^6/uL (4.1-5.3); Red Cell Distribution Width 13.2 % (12.1-15.1); White Blood Count 10.3 10^3/uL (4.0-10.0)
[2021-03-20 16:49] LABS: Alanine Aminotransferase 39 U/L (0-33); Albumin Level 4.1 g/dL (3.5-5.2); Alkaline Phosphatase 50 IU/L (35-105); Anion Gap 13.4 (5-19); Aspartate Amino Transferase 18 U/L (0-32); Blood Urea Nitrogen 17 mg/dL (6-20); C Reactive Protein 4.7 mg/L (0.0-4.9); Calcium 9.6 mg/dL (8.5-10.5); Carbon Dioxide 32 mmol/L (22-29); Chloride 88 mmol/L (98-107); Globulin 3.6 g/dL (1.3-4.6); Glomerular Filtration Rate 168.3 mL/min (90-130); Glucose 114 mg/dL (65-115); NT Pro B Type Natriuretic Pept 2298 pg/mL (0-125); Osmolality Calculated 272 mOsm/kg (285-295); Potassium 3.4 mmol/L (3.5-5.1); Sodium 130 mmol/L (136-145); Total Bilirubin 0.4 mg/dL (0.15-1.2); Total Protein 7.7 g/dL (6.6-8.7)
[2021-03-20] MEDS: hyDRALAzine 20 mg/mL INJ 1 mL 10 MG IVP (16:51)
[2021-03-20 16:57] LABS: SARS Covid-2 Antigen Negative (Negative)
[2021-03-20 17:01] VITALS: BP 178/113; PULSE 88; RESP 16; O2SAT 95
[2021-03-20] MEDS: FUROsemide 10 mg/mL SDV 4mL 40 MG IVP (17:11)
[2021-03-20 18:18] VITALS: BP 170/94; PULSE 78; RESP 16; O2SAT 94
== END 2021-03-20 18:43 | disposition home or self-care (01) ==
PROVIDERS: Emergency Provider Emergency Medicine; PCP Nurse Practitioner
DX: J44.1 Chronic obstructive pulmonary disease with (acute) exacerbation (principal); I10 Essential (primary) hypertension; F41.1 Generalized anxiety disorder; K21.9 Gastro-esophageal reflux disease without esophagitis; E78.2 Mixed hyperlipidemia; E66.9 Obesity, unspecified; Z68.42 Body mass index [BMI] 45.0-49.9, adult; Z99.81 Dependence on supplemental oxygen; Z79.84 Long term (current) use of oral hypoglycemic drugs
CPT/HCPCS: 36600; 71045; 80053; 82803; 83880; 85025; 86140; 87426; 93005; 94640; 96374; 96375; 99284; J0360; J1940; J7611

== ENCOUNTER → 2021-04-26 09:49 | Outpatient (BNVA) | payer MEDICAID, SELFPAY | PROVIDERS: PCP Nurse Practitioner; Visit Provider Nurse Practitioner Family | DX: I10 Essential (primary) hypertension (principal) | CPT/HCPCS: 80053; 80061; 84443; 85025 ==